=== PATIENT | male | born 1965 | race Caucasian/White ===

== ENCOUNTER → 2021-02-24 | Outpatient (CLI) | payer BC, OTHER | LOC: US 13:14 | DX: I70.213 Atherosclerosis of native arteries of extremities with intermittent claudication, bilateral legs (principal); I70.243 Atherosclerosis of native arteries of left leg with ulceration of ankle; L97.522 Non-pressure chronic ulcer of other part of left foot with fat layer exposed | CPT/HCPCS: 93925 ==

== ENCOUNTER 2021-05-02 10:44 | Inpatient (IN) | payer BC ==
[~2021-05-02] VITALS: Ht 177.8 cm; Wt 87.1 kg
[2021-05-02] MEDS ORDERED: GABAPENTIN800 MG PO (19:53)
[2021-05-02] MEDS ORDERED: CLOPIDOGREL75 MG PO (19:53)
[2021-05-02] MEDS ORDERED: CYCLOBENZAPRINE10 MG PO (19:54)
[2021-05-02] MEDS ORDERED: METFORMIN HCL1000 MG PO (19:55)
[2021-05-02] MEDS ORDERED: LISINOPRIL10 MG PO (19:55)
[2021-05-02] MEDS ORDERED: ATORVASTATIN CA20 MG PO (19:55)
[2021-05-02] MEDS ORDERED: FENOFIBRATE54 MG PO (19:55)
[2021-05-02] MEDS ORDERED: JARDIANCE25 MG PO (19:56)
[2021-05-02] MEDS ORDERED: VENLAFAXINE H37.5 M1 PO (19:56)
[2021-05-02] MEDS ORDERED: JARDIANCE10 MG PO (19:56)
[2021-05-02] MEDS ORDERED: ASPIRIN EC81 MG PO (19:57)
[2021-05-02 20:37] LABS: HEMOGLOBIN 11.9 gm/dl (14.0-17.5); RED BLOOD COUNT 4.1 M/UL (4.20-5.50); WHITE BLOOD COUNT 9.6 K/UL (4.5-11.0)
[2021-05-02 20:58] LABS: BUN/CREATININE RATIO 25 (0-10)
--- NOTE | 2021-05-03 19:06 | NUR ---
1899 DR. GALLEGOS CALLED AND ASK FOR ORDERS TO BE PUT IN FOLLOWS 1. NPO @ 0000 2. CONSENT FOR DEBRIDMENT OF NECTROIC TENDON TISSUE WITH APPLICATION OF GRAFT AND WOUND VAC. 3. SCHEDULE PROCEDURE FOR SURGERY, DESCRIBED ABOVE AND NOTIFY HOUSE. 4. DRESSING CHANGE TONIGHT DAMP DAKINS, 1/4 STRENGTH SOFT DRESSING. TAKE PIC WITH [facility] AND PUT IN CHART.
[2021-05-04 05:51] LABS: HEMOGLOBIN 12.9 gm/dl (14.0-17.5); RED BLOOD COUNT 4.51 M/UL (4.20-5.50); WHITE BLOOD COUNT 10.8 K/UL (4.5-11.0)
[2021-05-04 06:07] LABS: BUN/CREATININE RATIO 18 (0-10)
[2021-05-05 06:26] LABS: RED BLOOD COUNT 4.22 M/UL (4.20-5.50); WHITE BLOOD COUNT 11.1 K/UL (4.5-11.0)
[2021-05-05 07:16] LABS: BUN/CREATININE RATIO 21 (0-10)
[2021-05-05] MEDS ORDERED: XARELTO2.5 MG PO (19:53)
[2021-05-06 02:27] LABS: HEMOGLOBIN 12.7 gm/dl (14.0-17.5); RED BLOOD COUNT 4.37 M/UL (4.20-5.50); WHITE BLOOD COUNT 10.1 K/UL (4.5-11.0)
[2021-05-06 02:49] LABS: BUN/CREATININE RATIO 18 (0-10)
[2021-05-07 05:32] LABS: HEMOGLOBIN 12.2 gm/dl (14.0-17.5); RED BLOOD COUNT 4.25 M/UL (4.20-5.50); WHITE BLOOD COUNT 9.7 K/UL (4.5-11.0)
[2021-05-07 05:51] LABS: BUN/CREATININE RATIO 23 (0-10)
--- NOTE | 2021-05-07 14:15 | NUR ---
DR. JORDAN AWARE OF 5 BEAT RUN OF NSVT. NEW ORDER NOTED FOR MAGNESIUM LEVEL TO BE ADDED TO THIS MORNING'S BLOOD DRAW.
--- NOTE | 2021-05-08 02:14 | NUR ---
Tele notified me that patient had a 5 beat run of V-tach and then a 6 beat run of V-tach. I went to check on patient and he was up in the bed eating a bag of chips, no signs of distress. Vital signs stable. Dr. Bojorquez notified, no new orders at this time.
[2021-05-08 07:05] LABS: HEMOGLOBIN 12.4 gm/dl (14.0-17.5); RED BLOOD COUNT 4.55 M/UL (4.20-5.50); WHITE BLOOD COUNT 11.7 K/UL (4.5-11.0)
[2021-05-08 08:29] LABS: BUN/CREATININE RATIO 20 (0-10)
[2021-05-09 05:10] LABS: HEMOGLOBIN 12.5 gm/dl (14.0-17.5); RED BLOOD COUNT 4.36 M/UL (4.20-5.50); WHITE BLOOD COUNT 11.3 K/UL (4.5-11.0)
[2021-05-09 05:36] LABS: BUN/CREATININE RATIO 30 (0-10)
--- NOTE | 2021-05-09 12:45 | NUR ---
Wound vac dressing changed per Dr. Murray's order.
== END 2021-05-09 16:27 | disposition home health service (06) | DRG 264 ==
LOC: M/S 18:11
PROVIDERS: Internal Medicine; Physician Assistant; ADMIT Internal Medicine
PROC: 0HRNXK3 Replacement of Left Foot Skin with Nonautologous Tissue Substitute, Full Thickness, External Approach (ICD-10-PCS; principal; 2021-05-04)
PROC: 0LBP0ZZ Excision of Left Lower Leg Tendon, Open Approach (ICD-10-PCS; principal; 2021-05-04)
DX: E11.52 Type 2 diabetes mellitus with diabetic peripheral angiopathy with gangrene (principal); L03.116 Cellulitis of left lower limb; M76.62 Achilles tendinitis, left leg; M66.872 Spontaneous rupture of other tendons, left ankle and foot; I10 Essential (primary) hypertension; Z20.822 Contact with and (suspected) exposure to COVID-19; F17.210 Nicotine dependence, cigarettes, uncomplicated; E78.00 Pure hypercholesterolemia, unspecified; E11.628 Type 2 diabetes mellitus with other skin complications; E11.40 Type 2 diabetes mellitus with diabetic neuropathy, unspecified; Z79.84 Long term (current) use of oral hypoglycemic drugs; Z85.53 Personal history of malignant neoplasm of renal pelvis; Z79.02 Long term (current) use of antithrombotics/antiplatelets; Z95.1 Presence of aortocoronary bypass graft; Z98.62 Peripheral vascular angioplasty status; Z88.1 Allergy status to other antibiotic agents; Z79.82 Long term (current) use of aspirin; Z80.51 Family history of malignant neoplasm of kidney
CPT/HCPCS: 36415; 73718; 80048; 80053; 80202; 82962; 83735; 85025; 85027; 85610; 87070; 87077; 87186; 87205; 93005; C1751; J0696; J2250; J2370; J2405; J2704; J2795; J3010; J3370; J7070; J7120; Q4133; U0002

== ENCOUNTER → 2021-05-23 | Outpatient (CLI) | payer BC ==
[~2021-05-23] MED LIST: ASPIRIN EC81 MG PO; ATORVASTATIN CA20 MG PO; CLOPIDOGREL75 MG PO; CYCLOBENZAPRINE10 MG PO; FENOFIBRATE54 MG PO; GABAPENTIN800 MG PO; JARDIANCE10 MG PO; JARDIANCE25 MG PO; LISINOPRIL10 MG PO; METFORMIN HCL1000 MG PO; VENLAFAXINE H37.5 M1 PO; XARELTO2.5 MG PO
== END ==
LOC: WCC 10:15
DX: E11.622 Type 2 diabetes mellitus with other skin ulcer (principal); L97.825 Non-pressure chronic ulcer of other part of left lower leg with muscle involvement without evidence of necrosis; S91.009A Unspecified open wound, unspecified ankle, initial encounter; E11.51 Type 2 diabetes mellitus with diabetic peripheral angiopathy without gangrene; E11.40 Type 2 diabetes mellitus with diabetic neuropathy, unspecified; I10 Essential (primary) hypertension; G60.8 Other hereditary and idiopathic neuropathies; F17.210 Nicotine dependence, cigarettes, uncomplicated; Z88.1 Allergy status to other antibiotic agents; Z79.02 Long term (current) use of antithrombotics/antiplatelets; Z79.899 Other long term (current) drug therapy; X58.XXXA Exposure to other specified factors, initial encounter

== ENCOUNTER → 2021-06-06 | Outpatient (CLI) | payer BC | LOC: WCC 09:11 | DX: E11.622 Type 2 diabetes mellitus with other skin ulcer (principal); L97.825 Non-pressure chronic ulcer of other part of left lower leg with muscle involvement without evidence of necrosis; S91.002A Unspecified open wound, left ankle, initial encounter; I10 Essential (primary) hypertension; E11.51 Type 2 diabetes mellitus with diabetic peripheral angiopathy without gangrene; G60.8 Other hereditary and idiopathic neuropathies; F17.210 Nicotine dependence, cigarettes, uncomplicated; Z88.1 Allergy status to other antibiotic agents; Z79.02 Long term (current) use of antithrombotics/antiplatelets; Z79.2 Long term (current) use of antibiotics; Z79.84 Long term (current) use of oral hypoglycemic drugs; Z79.899 Other long term (current) drug therapy; X58.XXXA Exposure to other specified factors, initial encounter ==

== ENCOUNTER → 2021-07-22 | Outpatient (CLI) | payer BC | LOC: OPSV 06:59 | DX: E11.621 Type 2 diabetes mellitus with foot ulcer (principal); L97.429 Non-pressure chronic ulcer of left heel and midfoot with unspecified severity; E11.51 Type 2 diabetes mellitus with diabetic peripheral angiopathy without gangrene; F17.200 Nicotine dependence, unspecified, uncomplicated | CPT/HCPCS: Q4133 ==

== ENCOUNTER → 2021-07-29 | Outpatient (CLI) | payer BC | LOC: OPSV 07:00 | DX: E11.621 Type 2 diabetes mellitus with foot ulcer (principal); L97.429 Non-pressure chronic ulcer of left heel and midfoot with unspecified severity; E11.51 Type 2 diabetes mellitus with diabetic peripheral angiopathy without gangrene; Z72.0 Tobacco use | CPT/HCPCS: Q4133 ==

== ENCOUNTER → 2021-08-05 | Outpatient (CLI) | payer BC | LOC: OPSV 07:00 | DX: E11.621 Type 2 diabetes mellitus with foot ulcer (principal); L97.419 Non-pressure chronic ulcer of right heel and midfoot with unspecified severity | CPT/HCPCS: Q4133 ==

== ENCOUNTER → 2021-08-17 | Outpatient (CLI) | payer BC | LOC: OPSV 07:00 | DX: S91.302A Unspecified open wound, left foot, initial encounter (principal); X58.XXXA Exposure to other specified factors, initial encounter | CPT/HCPCS: Q4133 ==

== ENCOUNTER → 2021-08-24 | Outpatient (CLI) | payer BC | LOC: OPSV 07:00 | DX: E11.621 Type 2 diabetes mellitus with foot ulcer (principal); L97.429 Non-pressure chronic ulcer of left heel and midfoot with unspecified severity | CPT/HCPCS: Q4133 ==

== ENCOUNTER → 2021-08-31 | Outpatient (CLI) | payer BC | LOC: OPSV 07:00 | DX: E11.621 Type 2 diabetes mellitus with foot ulcer (principal); E11.51 Type 2 diabetes mellitus with diabetic peripheral angiopathy without gangrene; L97.429 Non-pressure chronic ulcer of left heel and midfoot with unspecified severity ==

== ENCOUNTER → 2021-09-07 | Outpatient (CLI) | payer BC | LOC: OPSV 07:00 | DX: S91.002A Unspecified open wound, left ankle, initial encounter (principal); E11.40 Type 2 diabetes mellitus with diabetic neuropathy, unspecified; E11.51 Type 2 diabetes mellitus with diabetic peripheral angiopathy without gangrene; X58.XXXA Exposure to other specified factors, initial encounter | CPT/HCPCS: Q4133 ==

== ENCOUNTER → 2021-09-14 | Outpatient (CLI) | payer BC | LOC: OPSV 07:00 | DX: E11.621 Type 2 diabetes mellitus with foot ulcer (principal); L97.429 Non-pressure chronic ulcer of left heel and midfoot with unspecified severity; Z87.891 Personal history of nicotine dependence | CPT/HCPCS: Q4133 ==

== ENCOUNTER → 2021-09-21 | Outpatient (CLI) | payer BC | LOC: OPSV 08:00 | DX: S91.302A Unspecified open wound, left foot, initial encounter (principal); X58.XXXA Exposure to other specified factors, initial encounter | CPT/HCPCS: Q4133 ==

== ENCOUNTER → 2022-01-04 | Outpatient (CLI) | payer BC | LOC: WCC 08:11 | DX: E11.621 Type 2 diabetes mellitus with foot ulcer (principal); L97.526 Non-pressure chronic ulcer of other part of left foot with bone involvement without evidence of necrosis; L97.522 Non-pressure chronic ulcer of other part of left foot with fat layer exposed; E11.65 Type 2 diabetes mellitus with hyperglycemia; I10 Essential (primary) hypertension; E11.51 Type 2 diabetes mellitus with diabetic peripheral angiopathy without gangrene; E11.40 Type 2 diabetes mellitus with diabetic neuropathy, unspecified; Z95.828 Presence of other vascular implants and grafts; Z88.1 Allergy status to other antibiotic agents ==

== ENCOUNTER → 2022-01-04 | Outpatient (CLI) | payer BC ==
[2022-01-04 13:45] LABS: HEMOGLOBIN 11.5 gm/dl (14.0-17.5); RED BLOOD COUNT 4.13 M/UL (4.20-5.50); WHITE BLOOD COUNT 15.7 K/UL (4.5-11.0)
[2022-01-04 14:06] LABS: BUN/CREATININE RATIO 25 (0-10)
== END ==
LOC: LAB 11:50
PROVIDERS: Nurse Practitioner Family
DX: E11.621 Type 2 diabetes mellitus with foot ulcer (principal); L97.529 Non-pressure chronic ulcer of other part of left foot with unspecified severity; E11.65 Type 2 diabetes mellitus with hyperglycemia
CPT/HCPCS: 36415; 71046; 73630; 80053; 85027; 85652; 86140; 93005

== ENCOUNTER → 2022-01-11 | Outpatient (CLI) | payer BC | LOC: WCC 07:45 | DX: E11.621 Type 2 diabetes mellitus with foot ulcer (principal); L97.522 Non-pressure chronic ulcer of other part of left foot with fat layer exposed; L97.426 Non-pressure chronic ulcer of left heel and midfoot with bone involvement without evidence of necrosis; E11.65 Type 2 diabetes mellitus with hyperglycemia; I10 Essential (primary) hypertension; I73.9 Peripheral vascular disease, unspecified; E11.40 Type 2 diabetes mellitus with diabetic neuropathy, unspecified; Z72.0 Tobacco use; Z95.828 Presence of other vascular implants and grafts; Z79.01 Long term (current) use of anticoagulants; Z79.02 Long term (current) use of antithrombotics/antiplatelets; Z88.1 Allergy status to other antibiotic agents | CPT/HCPCS: 87070; 87205 ==

== ENCOUNTER → 2022-01-11 | Outpatient (CLI) | payer BC | LOC: NM 09:51 | DX: E11.621 Type 2 diabetes mellitus with foot ulcer (principal); L97.529 Non-pressure chronic ulcer of other part of left foot with unspecified severity | CPT/HCPCS: 78315; A9503 ==